=== PATIENT | female | born 1995 | race Caucasian/White ===

== ENCOUNTER 2018-12-13 16:33 | Emergency (ER) | payer SELFPAY ==
[~2018-12-13] VITALS: Ht 165.1 cm; Wt 83.9 kg
--- NOTE | 2018-12-13 17:04 | ED Abdominal Pain ---
General Chief Complaint: Abdominal/GI Problems Stated Complaint: ABD PAIN, LOW BACK PAIN, DIZZY, NAUSEA History of Present Illness Date Seen by Provider: Dec 13, 2018 Time Seen by Provider: 16:48 This is a 23-year-old female who complains of mid suprapubic pain constant all day today, but intermittent over the last several weeks. It is nonradiating. It is mild to moderate in severity. It is not worse with walking, slightly better with Tylenol. She has had increased frequency of urination but no hematuria or dysuria. Denies vaginal bleeding or discharge. Last menstrual period was in October. Has mild constipation, no vomiting. Hx X 2. Allergies and Home Medications Allergies Coded Allergies: No Known Drug Allergies (Unverified , 12/13/18) Patient Home Medication List Home Medication List Reviewed: Yes Review of Systems Review of Systems Constitutional: no symptoms reported EENTM: No Symptoms Reported Respiratory: No Symptoms Reported Cardiovascular: No Symptoms Reported Gastrointestinal: See HPI Genitourinary: See HPI Musculoskeletal: no symptoms reported Skin: no symptoms reported Psychiatric/Neurological: No Symptoms Reported Endocrine: No Symptoms Reported Hematologic/Lymphatic: No Symptoms Reported Past Pvpcsce-Xjyldy-Iygwrw Hx Past Med/Social Hx: Reviewed Nursing Past Med/Soc Hx Patient Social History Recent Foreign Travel: No Contact w/Someone Who Travel: No Physical Exam Vital Signs Vital Signs - First Documented 12/13/18 16:43 Temp 98.1 Pulse 89 Resp 20 B/P (MAP) 130/83 (99) Pulse Ox 97 O2 Delivery Room Air Capillary Refill : Height/Weight/BMI Height: '" Weight: lbs. oz. kg; BMI Method: General Appearance: no apparent distress HEENT: normal ENT inspection Neck: supple Respiratory: lungs clear Cardiovascular: normal peripheral pulses, regular rate, rhythm Gastrointestinal: soft, other (mild mid suprapubic tenderness without rebound, rigidity, or guarding) Extremities: non-tender Back: no CVA tenderness Neurologic/Psychiatric: alert, normal mood/affect, oriented x 3; No abnormal gait Skin: warm/dry Progress/Results/Core Measures Results/Orders Lab Results Laboratory Tests Test 12/13/18 16:45 12/13/18 17:40 Range/Units Urine Color YELLOW Urine Clarity CLEAR Urine pH 6.0 5-9 Urine Specific [place] 1.025 H 1.016-1.022 Urine Protein NEGATIVE NEGATIVE Urine Glucose (UA) NEGATIVE NEGATIVE Urine Ketones NEGATIVE NEGATIVE Urine Nitrite POSITIVE H NEGATIVE Urine Bilirubin NEGATIVE NEGATIVE Urine Urobilinogen 0.2 NORMAL MG/DL Urine Leukocyte Esterase NEGATIVE NEGATIVE Urine RBC (Auto) 1+ H NEGATIVE Urine RBC 0-2 /HPF Urine WBC 0-2 /HPF Urine Squamous Epithelial Cells 0-2 /HPF Urine Crystals NONE /LPF Urine Bacteria FEW H /HPF Urine Casts NONE /LPF Urine Mucus MODERATE H /LPF Urine Culture Indicated YES Urine Test POSITIVE NEGATIVE Human Chorionic Gonadotropin, Quant 43 H <5 MIU/ML My Orders Orders - THALIA MEHTA DO Ua Culture If Indicated (12/13/18 16:57) Hcg,Qualitative Urine (12/13/18 16:57) Urine Culture (12/13/18 16:45) Hcg,Quantitative (12/13/18 17:18) Vital Signs/I&O 12/13/18 16:43 Temp 98.1 Pulse 89 Resp 20 B/P (MAP) 130/83 (99) Pulse Ox 97 O2 Delivery Room Air Progress Progress Note #1: Progress Note This is a 23-year-old female complaining of mid suprapubic pain, she has evidence of a UTI but also has a positive test. We are checking a quantitative hCG to assess whether ultrasound would be able to potentially identify an intrauterine if present. Patient is confident her blood type is A+, she also does not remember receiving rhogam in the past. We do not have formal ultrasound capability at this facility and if quantitative hCG is elevated above discriminatory zone I will recommend transfer for ultrasound to be performed tonight. Progress Note #2: Progress Note HCG below discriminatory zone. Recommend prompt follow-up with [facility]. Ectopic precautions were reviewed with patient. She feels comfortable going home. Departure Impression Primary Impression: Additional Impressions: Abdominal pain UTI (urinary tract infection) Disposition: 01 HOME, SELF-CARE Condition: Stable Departure-Patient Inst. Referrals: NO,LOCAL PHYSICIAN (PCP) Primary Care Physician OFE WATERS MD Patient Instructions: - The First Month Scripts Acetaminophen (Tylenol Extra Strength) 500 Mg Tablet 1000 MG PO QID PRN for pain for 30 Days, #30 TAB Prov: THALIA MEHTA DO 12/13/18 Cephalexin (Cephalexin) 500 Mg Tablet 500 MG PO BID for 5 Days, #10 TAB 0 Refills Prov: THALIA MEHTA DO 12/13/18 THALIA MEHTA DO Dec 13, 2018 17:04
[2018-12-13 17:12] LABS: CLARITY,URINE CLEAR; COLOR,URINE YELLOW; PROTEIN,URINE NEGATIVE (NEGATIVE)
[2018-12-13 17:13] LABS: BACTERIA,URINE FEW /HPF; BILIRUBIN,URINE NEGATIVE (NEGATIVE); GLUCOSE, URINE (UA) NEGATIVE (NEGATIVE); KETONES,URINE NEGATIVE (NEGATIVE); LEUKOCYTE ESTERASE ,URINE NEGATIVE (NEGATIVE); NITRITE,URINE POSITIVE (NEGATIVE); RBC,URINE 0-2 /HPF; UROBILINOGEN,URINE 0.2 MG/DL (NORMAL); WBC,URINE 0-2 /HPF
[2018-12-13 17:14] LABS: SQUAMOUS EPITHELIAL CELL,UR 0-2 /HPF
[2018-12-13] MEDS ORDERED: CEPH500T PO (18:30)
[2018-12-13] MEDS ORDERED: ACET-2267 PO (18:30)
[2018-12-13 18:42] VITALS: BP 130/83
== END 2018-12-13 18:42 | disposition home or self-care (01) ==
LOC: ER FS 16:35
DX: O23.40 Unspecified infection of urinary tract in pregnancy, unspecified trimester (principal); Z98.890 Other specified postprocedural states; Z3A.00 Weeks of gestation of pregnancy not specified
CPT/HCPCS: 36415; 81000; 84702; 84703; 87088

== ENCOUNTER 2019-02-24 06:01 | Emergency (ER) | payer MEDICAID, OTHER ==
[~2019-02-24] VITALS: Ht 152.4 cm; Wt 79.4 kg
[~2019-02-24 06:01] MED LIST: ACET-2267 PO; CEPH500T PO
--- OUTSIDE RECORDS SUMMARY | 2019-02-24 06:09 | XMS REPORT | Continuity of Care Document ---
Author Organization Unknown Address Unknown Allergies There is no data. Medications There is no data. Problems There is no data. Procedures There is no data. Results Test Result Range HEP B SURFACE ANTIGEN - 12/17/18 10:36 HEPATITIS B SURFACE ANTIGEN NON-REACTIVE NON-REACTIVE GC/CHLAMYDIA (SWAB OR URINE)-RAPID - 12/17/18 16:42 CHLAMYDIA TRACHOMATIS RNA, TMA DETECTED NOT DETECTED NEISSERIA GONORRHOEAE RNA, TMA NOT DETECTED NOT DETECTED COMMENT NRG GC/CHLAMYDIA (SWAB OR URINE)-RAPID - 02/04/19 13:49 CHLAMYDIA TRACHOMATIS RNA, TMA NOT DETECTED NOT DETECTED NEISSERIA GONORRHOEAE RNA, TMA NOT DETECTED NOT DETECTED COMMENT NRG Encounters ACCT No. Visit Date/Time Discharge Status Pt. Type Provider Facility Loc./Unit Complaint [id number] 02/18/2019 15:15:00 02/18/2019 23:59:59 [facility] Outpatient [facility]ANNA[facility] [id number] 02/04/2019 13:30:00 Document Registration [id number] 12/17/2018 09:15:00 Document Registration
[2019-02-24] MEDS ORDERED: ACETAMINOPHEN 325 MG TABLET PO STA (06:29)
--- NOTE | 2019-02-24 06:36 | ED Abdominal Pain ---
General Stated Complaint: ABDOMINAL PAIN/15 WEEKS Source of Information: Patient Exam Limitations: No Limitations History of Present Illness Date Seen by Provider: Feb 24, 2019 Time Seen by Provider: 06:13 Initial Comments Here with report of right lower quadrant abdominal pain that started after she was lifting at work. 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 She felt a tearing sensation on the right side and thinks that she may have ripped old C- section scar. She is currently approximately 15 weeks . She did note some vaginal bleeding 1 but that has stopped. It was on the toilet paper when she wiped. Denies nausea or vomiting. States pain is worse when she is walking about and better when she is resting with maximal pain 8 out of 10 and decreases to 5 out of 10. She does not appear to be in any distress. She is walking without difficulty. She is a patient of Dr. Macias. Timing/Duration: 1-3 Hours Severity/Quality: Moderate, Aching Location: RLQ Radiation: No Radiation Activities at Onset: Activity Modifying Factors: Improves With Resting Associated Symptoms: No Back Pain, No Chest Pain, No Fever/Chills, No Nausea/V omiting, No Swelling/Mass in Abdomen, No Weakness Allergies and Home Medications Allergies Coded Allergies: No Known Drug Allergies (Unverified , 12/13/18) Home Medications Acetaminophen 500 Mg Tablet, 1,000 MG PO QID PRN for pain Prescribed by: THALIA MEHTA on 12/13/18 183 Cephalexin 500 Mg Tablet, 500 MG PO BID Prescribed by: THALIA MEHTA on 12/13/18 1830 Patient Home Medication List Home Medication List Reviewed: Yes Review of Systems Review of Systems Constitutional: see HPI; No chills, No fever Respiratory: No Symptoms Reported Cardiovascular: No Symptoms Reported Gastrointestinal: See HPI, Abdominal Pain, Constipated; Denies Diarrhea Genitourinary: See HPI, Discharge (whitish) Musculoskeletal: see HPI; No back pain; muscle pain Skin: no symptoms reported Psychiatric/Neurological: No Symptoms Reported Past Qyqoert-Rjmcph-Zwaybw Hx Past Med/Social Hx: Reviewed Nursing Past Med/Soc Hx Patient Social History Alcohol Use: Denies Use Recreational Drug Use: No Smoking Status: Current Everyday Smoker Type Used: Cigarettes Recent Foreign Travel: No Contact w/Someone Who Travel: No Recent Hopitalizations: No Seasonal Allergies Seasonal Allergies: No Past Medical History Surgeries: Yes Section Respiratory: No Cardiac: No Neurological: No Genitourinary: No Gastrointestinal: No Musculoskeletal: No Endocrine: No HEENT: No Cancer: No Psychosocial: No Integumentary: No Blood Disorders: No Family Medical History Reviewed Nursing Family Hx Physical Exam Vital Signs Vital Signs - First Documented 02/24/19 06:08 Temp 97.8 Pulse 92 Resp 20 B/P (MAP) 126/74 (91) Pulse Ox 99 O2 Delivery Room Air Capillary Refill : Height/Weight/BMI Height: 5'5.00" Weight: 185lbs. oz. 83.359795yi; BMI Method:Stated General Appearance: WD/WN, no apparent distress Neck: full range of motion, supple Respiratory: lungs clear, normal breath sounds Cardiovascular: regular rate, rhythm, no murmur Peripheral Pulses: 2+ Dorsalis Pedis (R), 2+ Left Dors-Pedis (L), 2+ Radial Pulses (R), 2+ Radial Pulses (L) Gastrointestinal: soft; No guarding, No rebound; tenderness (mild on deep palpation to the suprapubic area.) Extremities: non-tender, normal inspection Back: normal inspection, no CVA tenderness, no vertebral tenderness Neurologic/Psychiatric: alert, oriented x 3 Skin: normal color, warm/dry Progress/Results/Core Measures Results/Orders Lab Results Laboratory Tests Test 02/24/19 06:08 Range/Units Urine Color YELLOW Urine Clarity CLEAR Urine pH 6.5 5-9 Urine Specific [place] 1.020 1.016-1.022 Urine Protein NEGATIVE NEGATIVE Urine Glucose (UA) NEGATIVE NEGATIVE Urine Ketones 2+ H NEGATIVE Urine Nitrite NEGATIVE NEGATIVE Urine Bilirubin NEGATIVE NEGATIVE Urine Urobilinogen 1.0 NORMAL MG/DL Urine Leukocyte Esterase NEGATIVE NEGATIVE Urine RBC (Auto) TRACE H NEGATIVE Urine RBC 0-2 /HPF Urine WBC 0-2 /HPF Urine Squamous Epithelial Cells 2-5 /HPF Urine Crystals NONE /LPF Urine Bacteria NEGATIVE /HPF Urine Casts NONE /LPF Urine Mucus NONE /LPF Urine Culture Indicated NO My Orders Orders - OJSE WHITFIELD MD Ua Culture If Indicated (02/24/19 06:19) Abo Rh Type (02/24/19 06:19) Acetaminophen Tablet/Caplet (Tylenol T (02/24/19 06:29) Vital Signs/I&O 02/24/19 06:08 Temp 97.8 Pulse 92 Resp 20 B/P (MAP) 126/74 (91) Pulse Ox 99 O2 Delivery Room Air Progress Progress Note : Progress Note Seen and evaluated. UA ordered. ABO Rh ordered. Limited bedside ultrasound done and does show positive movement. Tylenol 650 mg by mouth ordered. Monitor patient. 0723: heart tones by Doppler per nursing were 135. No persistent vaginal bleeding and overall feels better now. I did discuss the case with Dr. Macias, and he would like to see her in follow-up tomorrow. No other recommendations at this time. Patient reports that she is historically a positive. We are pending the ABO Rh determination. She has not had program on previous pregnancies. Discharged home with return precautions. Patient verbalize understanding instructions and agreement with plan. Departure Impression Primary Impression: Abdominal pain during in second trimester Disposition: HOME, SELF-CARE Condition: Improved Departure-Patient Inst. Decision time for Depature: 07:25 Referrals: NO,LOCAL PHYSICIAN (PCP/Family) Primary Care Physician Patient Instructions: Acute Abdomen (Belly Pain), Adult (DC), Threatened Misca rriage (DC) Add. Discharge Instructions: Call Dr. Macias' office today for appointment tomorrow. You may take your prescribed Tylenol with Codeine as prescribed. If you're not taking that, you may take 2 extra strength Tylenol/acetaminophen every 6 hours but do not take both together as they both have Tylenol/acetaminophen in them. Return for worse pain, vaginal bleeding, weakness, breathing problems, difficulty with urination or or going to the bathroom or other concerns as needed. You should initiate pelvic rest until cleared by Dr. Macias. You should avoid heavy lifting as this will likely aggravate the problem as well (nothing over 10 pounds). Copy Copies To 1: SANDRA MACIAS TIMOTHY D MD Feb 24, 2019 06:35
[2019-02-24 06:55] LABS: BACTERIA,URINE NEGATIVE /HPF; BILIRUBIN,URINE NEGATIVE (NEGATIVE); CLARITY,URINE CLEAR; COLOR,URINE YELLOW; GLUCOSE, URINE (UA) NEGATIVE (NEGATIVE); KETONES,URINE 2+ (NEGATIVE); LEUKOCYTE ESTERASE ,URINE NEGATIVE (NEGATIVE); NITRITE,URINE NEGATIVE (NEGATIVE); PH,URINE 6.5 (5-9); PROTEIN,URINE NEGATIVE (NEGATIVE); RBC,URINE 0-2 /HPF; WBC,URINE 0-2 /HPF
--- NOTE | 2019-02-24 07:07 | NUR ---
Report was given to COLTON Gary at this time.
[2019-02-24 07:38] VITALS: BP 126/74
== END 2019-02-24 07:37 | disposition home or self-care (01) ==
LOC: EDUNIT# 06:01 → ER FS 06:06
DX: O26.892 Other specified pregnancy related conditions, second trimester (principal); R10.31 Right lower quadrant pain; O99.332 Smoking (tobacco) complicating pregnancy, second trimester; F17.210 Nicotine dependence, cigarettes, uncomplicated; Z3A.15 15 weeks gestation of pregnancy; Z98.890 Other specified postprocedural states
CPT/HCPCS: 81000; 86900; 86901

== ENCOUNTER 2019-05-16 01:56 | Emergency (ER) | payer MEDICAID ==
[~2019-05-16] VITALS: Ht 152.4 cm; Wt 77.6 kg
--- NOTE | 2019-05-16 02:19 | ED Abdominal Pain ---
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 Patient states that she has had contractions for the last 2 hours. They are 7 minutes apart and last 5 minutes. Patient states that she had placenta previa at the beginning of her but it has resolved. Sepsis Screen: No Definite Risk History of Present Illness Date Seen by Provider: May 16, 2019 Time Seen by Provider: 02:05 Initial Comments The pt is a 23 y/o who presents for evaluation of possible contractions. She sits at 2300 tonight she felt like her abdomen and back firmed up and contracted and she felt some pain. She says Dr. Vail is her ISSUING OPERATOR. She denies any vaginal bleeding, nausea or vomiting, urinary symptoms, pelvic pain, vaginal discharge, fevers or chills. FHT's are 157. She reports she was told earliness that she had placenta previa but that later the placenta repositioned. Timing/Duration: 1-3 Hours Severity/Quality: Moderate Location: Generalized Abdomen Radiation: No Radiation Modifying Factors: Improves With Resting (makes it better) Allergies and Home Medications Allergies Coded Allergies: No Known Drug Allergies (Unverified , 12/13/18) Home Medications Acetaminophen 500 Mg Tablet, 1,000 MG PO QID PRN for pain Prescribed by: THALIA MEHTA on 12/13/181829 Cephalexin 500 Mg Tablet, 500 MG PO BID Prescribed by: THALIA MEHTA on 12/13/181829 Patient Home Medication List Home Medication List Reviewed: Yes Review of Systems Review of Systems Constitutional: no symptoms reported EENTM: No Symptoms Reported Respiratory: No Symptoms Reported Cardiovascular: No Symptoms Reported Gastrointestinal: Abdominal Pain Genitourinary: No Symptoms Reported Musculoskeletal: no symptoms reported Skin: no symptoms reported Psychiatric/Neurological: No Symptoms Reported Endocrine: No Symptoms Reported Hematologic/Lymphatic: No Symptoms Reported All Other Systems Reviewed Negative Unless Noted: Yes Past Nbbwrjz-Ufnnnz-Lybmqy Hx Past Med/Social Hx: Reviewed Nursing Past Med/Soc Hx Patient Social History Alcohol Use: Denies Use Recreational Drug Use: No Smoking Status: Current Everyday Smoker Type Used: Cigarettes Recent Foreign Travel: No Contact w/Someone Who Travel: No Recent Infectious Disease Expo: No Recent Hopitalizations: No Physical Abuse: No Sexual Abuse: No Mistreated: No Fear: No Seasonal Allergies Seasonal Allergies: No Past Medical History Surgeries: Yes Section Respiratory: No Cardiac: No Neurological: No Genitourinary: No Gastrointestinal: No Musculoskeletal: No Endocrine: No HEENT: No Cancer: No Psychosocial: No Integumentary: No Blood Disorders: No Physical Exam Vital Signs Vital Signs - First Documented 05/16/19 02:05 Temp 97.5 Pulse 109 Resp 20 B/P (MAP) 124/86 (99) Pulse Ox 95 O2 Delivery Room Air Capillary Refill : Less Than 3 Seconds Height/Weight/BMI Height: 5'0" Weight: 171lbs. 0oz. 77.257587ar; BMI Method:Stated General Appearance: WD/WN, no apparent distress HEENT: PERRL/EOMI, normal ENT inspection, TMs normal Respiratory: chest non-tender, normal breath sounds, no respiratory distress Cardiovascular: regular rate, rhythm, no edema, no JVD Gastrointestinal: normal bowel sounds, non tender, soft, no pulsatile mass, other (gravid abdomen consistent with dates, no focal tenderness) Extremities: normal range of motion, non-tender, normal capillary refill Back: normal inspection, no CVA tenderness, no vertebral tenderness Pelvic: normal external exam, normal adnexa, no cerv. 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 Vail [facility] I give the patient option of ambulance transport but she states she is comfortable driving herself and that she is feeling much better. She will still need to be monitored. Bedside pelvic exam (web design instructor COLTON Burns) shows the patient is not in active labor. Departure Impression Primary Impression: Abdominal pain during Additional Impression: contractions Disposition: 01 HOME, SELF-CARE Condition: Stable Departure-Patient Inst. Decision time for Depature: 02:39 Referrals: NO,LOCAL PHYSICIAN (PCP) Primary Care Physician SANDRA BACK DO Patient Instructions: Stomach Pain in Early Add. Discharge Instructions: Go directly to labor and delivery at [facility]. Return to the ER immediately for new or worsening symptoms. Follow up with Dr. Vail next 1-2 days. DONALD CALDWELL DO May 16, 2019 02:19
[2019-05-16 02:40] VITALS: BP 124/86
[2019-05-16] MEDS ORDERED: PREN-142 PO (04:52)
== END 2019-05-16 02:40 | disposition home or self-care (01) ==
LOC: EDUNIT# 01:56 → ER FS 01:57
DX: O60.02 Preterm labor without delivery, second trimester (principal); O99.332 Smoking (tobacco) complicating pregnancy, second trimester; F17.210 Nicotine dependence, cigarettes, uncomplicated; Z3A.26 26 weeks gestation of pregnancy
CPT/HCPCS: 99281

== ENCOUNTER 2019-05-16 03:47 | Outpatient (CLI) | payer MEDICAID ==
--- NOTE | 2019-05-16 03:53 | NUR ---
MARGARITO TELLEZ presented to unit via wheelchair from ED, accompanied by ED staff member, with c/o STOMACH & BACK PAIN,PRESSURE,CLEAR DISCHARGE. MARGARITO TELLEZ weighed, gowned, voided, and to bed. EFHM and TOCO applied, VS taken. MARGARITO TELLEZ oriented to bed controls, call light, TV, heat, and A/C controls.
[2019-05-16 04:09] VITALS: BP 112/70
[2019-05-16 04:15] LABS: BILIRUBIN,URINE NEGATIVE (NEGATIVE); CLARITY,URINE CLEAR; COLOR,URINE YELLOW; GLUCOSE, URINE (UA) NEGATIVE (NEGATIVE); KETONES,URINE NEGATIVE (NEGATIVE); LEUKOCYTE ESTERASE ,URINE 1+ (NEGATIVE); NITRITE,URINE NEGATIVE (NEGATIVE); PH,URINE 6 (5-9); PROTEIN,URINE 1+ (NEGATIVE); UROBILINOGEN,URINE 1 MG/DL (NORMAL)
[2019-05-16 04:33] LABS: BACTERIA,URINE MODERATE /HPF; GRANULAR CASTS,URINE 0-2 /LPF; HYALINE CASTS, URINE 0-2 /LPF; WBC,URINE 0-2 /HPF
[2019-05-16] MEDS ORDERED: ACETAMINOPHEN 500 MG TAB (TYLENOL) ONE (04:38)
--- NOTE | 2019-05-16 04:44 | NUR ---
ht wt unobtained as pt reports leaking, pt straight to bed for imminent assessment regarding poss rom.
[2019-05-16] MEDS ORDERED: PREN-142 PO (04:52)
[2019-05-16] MEDS ORDERED: ACETAMINOPHEN 500 MG TAB (TYLENOL) PO ONE (05:00)
--- NOTE | 2019-05-16 05:00 | NUR ---
Discharge instructions reviewed with pt per Jesus Figueroa RN. Signature sheet signed, placed on chart. Pt ambulating to private vehicle at time. No signs of distress noted.
[2019-05-18] MEDS ORDERED: metroNIDAZOLE 500MG/100ML IVPB 100 ML ONE (01:50)
[2019-05-18] MEDS ORDERED: ceFAZolin 2 GM/50 ML NS 50 ML ONE (01:50)
--- NOTE | 2019-05-23 00:33 | Physician Query-Final Dx ---
FARHEEN CARLTON 05/23/19 0033: Final Diagnosis Give Final Diagnosis Please give Final Diagnosis Please give Final Diagnosis and add weeks of gestation SANDRA BACK DO 05/23/19 0803: Final Diagnosis Give Final Diagnosis Intrauterine at 26 5/7 weeks 2. Back Pain 3. Abdominal Pain 4. Vaginal Discharge FARHEEN CARLTON May 23, 2019 00:33 SANDRA BACK DO May 23, 2019 08:03
== END 2019-05-16 05:00 | disposition home or self-care (01) ==
LOC: WSo 03:47 → LDRP 03:48 → WSo 05:00
PROVIDERS: ATTEND Obstetrics & Gynecology
DX: O26.892 Other specified pregnancy related conditions, second trimester (principal); N89.8 Other specified noninflammatory disorders of vagina; M54.9 Dorsalgia, unspecified; R10.9 Unspecified abdominal pain; Z3A.26 26 weeks gestation of pregnancy
CPT/HCPCS: 81000; 99213

== ENCOUNTER 2019-07-13 08:07 | Emergency (ER) | payer MEDICAID ==
[~2019-07-13] VITALS: Ht 152.4 cm; Wt 79.1 kg
[~2019-07-13 08:07] MED LIST changes: +PREN-142 PO
--- NOTE | 2019-07-13 08:25 | NUR ---
Dr. Luis Enrique Macias called at this time and informed that patient presented to ER at 35 weeks gestation with c/o fluid leaking. This RN informed Dr. Macias that patient stated that she felt a gush of fluid around 7am this morning and thinks that her water broke. She also c/o intermittent cramping that occurs every 8 to 10 minutes and then subsides and might not occur again for several hours. AmnioTest swab was negative for amniotic fluid. Dr. Macias states that we can discharge patient and send her by private vehical to [facility] for further monitoring.
--- NOTE | 2019-07-13 08:35 | ED GU-Female ---
General Stated Complaint: PT THINKS HER WATER BROKE - 35 WKS Source: patient Exam Limitations: no limitations History of Present Illness Date Seen by Provider: Jul 13, 2019 Time Seen by Provider: 08:20 Initial Comments The patient is a 23-year-old female who believes that her water broke while in bed this morning. She states that she is 35 weeks and wants to be a repeat in July at [facility] Timing/Duration: just prior to arrival Severity/Quality: moderate Allergies and Home Medications Allergies Coded Allergies: No Known Drug Allergies (Unverified , 12/13/18) Home Medications Acetaminophen 500 Mg Tablet, 1,000 MG PO QID PRN for pain Prescribed by: THALAI MEHTA on 12/13/18 4250 Patient Home Medication List Home Medication List Reviewed: Yes Review of Systems Review of Systems Constitutional: see HPI Respiratory: no symptoms reported Cardiovascular: no symptoms reported Gastrointestinal: no symptoms reported, other Past Tspybkw-Mnqmny-Tsqohn Hx Patient Social History Type Used: Cigarettes Recent Hopitalizations: No Seasonal Allergies Seasonal Allergies: No Past Medical History Surgeries: Yes Section Respiratory: No Cardiac: No Neurological: No Genitourinary: No Gastrointestinal: No Musculoskeletal: No Endocrine: No HEENT: No Cancer: No Psychosocial: No Integumentary: No Blood Disorders: No Physical Exam Vital Signs Capillary Refill : Height, Weight, BMI Height: 5'0" Weight: 171lbs. 0oz. 77.175336vd; BMI Method:Stated General Appearance: WD/WN, no apparent distress Neck: full range of motion Cardiovascular: normal peripheral pulses Respiratory: chest non-tender, lungs clear, normal breath sounds, no respiratory distress, no accessory muscle use, respiratory distress Vaginal swab was tested for amniotic fluid and was negative. Manual exam showed the cervix to be high anterior and tight. Progress/Results/Core Measures Suspected Sepsis SIRS Temperature: Pulse: Respiratory Rate: Blood Pressure / Mean: Results/Orders Vital Signs/I&O Capillary Refill : Departure Communication (Admissions) 7738: Discussed the findings with Dr. Macias her OB provider. Given the findings he okays her to transfer immediately by private vehicle to [place] her planned delivery site. Impression Primary Impression: possible early labor Disposition: XFER SHT-TRM HOSP Condition: Stable/Unchanged Transfer Transfer Reason: Exceeds level of care Time Spoke to Accepting Phy: 08:42 Transfer Progress Notes See progress note above. The patient has been cleared by Dr. Macias to go by private vehicle to [place] her planned site of Departure-Patient Inst. Referrals: SANDRA MACIAS DO (PCP/Family) Primary Care Physician KAREN MEANS MD Jul 13, 2019 08:35
[2019-07-13 08:49] VITALS: BP 134/85
--- NOTE | 2019-07-13 08:59 | NUR ---
This RN contacted COLTON Soto at [facility] and informed her that the patient was instructed to come there per Dr. Macias for futher evaluation. Understanding was verbalized at this time.
--- NOTE | 2019-07-13 09:01 | NUR ---
Recieved a phone call from COLTON Vera in the OB department at [facility]. Report given at this time with understanding verbalized.
== END 2019-07-13 08:49 | disposition short-term general hospital (02) ==
LOC: EDUNIT# 08:07 → ER FS 08:08
DX: O42.913 Preterm premature rupture of membranes, unspecified as to length of time between rupture and onset of labor, third trimester (principal); Z3A.35 35 weeks gestation of pregnancy

== ENCOUNTER 2019-10-21 00:07 | Emergency (ER) | payer SELFPAY ==
[~2019-10-21] VITALS: Ht 152 cm; Wt 70.0 kg
[2019-10-21] MEDS ORDERED: ONDANSETRON 4 MG (ZOFRAN) ORAL DISSOLVE TAB PO STA (00:22)
[2019-10-21] MEDS ORDERED: LIDOCAINE/ANTACID/DIPHENHYDRAMINE 1:1:1 PO STA (00:22)
[2019-10-21] MEDS ORDERED: LIDOCAINE 2% VISCOUS 15 ML UDC ONE (00:25)
[2019-10-21] MEDS ORDERED: ANTACID SUSP 30 ML UDC (MYLANTA) ONE (00:25)
[2019-10-21] MEDS ORDERED: ANTACID SUSP 30 ML UDC (MYLANTA) PO ONE (00:30)
[2019-10-21] MEDS ORDERED: LIDOCAINE 2% VISCOUS 15 ML UDC PO ONE (00:30)
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
[2019-10-21] MEDS ORDERED: FAMO-119 PO (00:33)
[2019-10-21] MEDS ORDERED: ONDA4TAB11 PO (00:33)
[2019-10-21 00:40] VITALS: BP 115/62
== END 2019-10-21 00:42 | disposition home or self-care (01) ==
LOC: EDUNIT# 00:07 → ER FS 00:09
DX: K30 Functional dyspepsia (principal); R10.816 Epigastric abdominal tenderness

== ENCOUNTER → 2020-06-14 | Outpatient (CLI) | payer SELFPAY ==
[~2020-06-14] MED LIST changes: +FAMO-119 PO; +ONDA4TAB11 PO
--- NOTE | 2020-06-14 09:36 | Diagnostic Imaging Report ---
EXAMINATION: Abdomen flat and erect at 9:10 AM. INDICATION: Abdominal pain. COMPARISON: There are no prior studies available for comparison. TECHNIQUE: Supine and erect views of the abdomen were obtained. FINDINGS: There is a 1.7 cm calcification overlying the right upper quadrant. This could be related to a gallstone. I would recommend that ultrasound be performed for further study. There are no other pathological calcifications noted. There is gas in both the large and small bowel in a nonspecific fashion. There is no sign of a bowel obstruction. There is no evidence for a pneumoperitoneum either. There does appear to be at least a moderate amount of fecal material in the ascending and transverse colon. There is no mass or organomegaly appreciated. The osseous structures are intact. IMPRESSION: 1. The calcific density overlying the right upper quadrant is questionable for cholelithiasis. Ultrasound would be recommended for further study. 2. The bowel gas pattern is nonspecific. There is no acute abnormality noted otherwise. Dictated by: Dictated on workstation # [id number]
== END ==
LOC: RAD FS 08:54
PROVIDERS: ATTEND Nurse Practitioner Family
DX: R10.11 Right upper quadrant pain (principal); R93.5 Abnormal findings on diagnostic imaging of other abdominal regions, including retroperitoneum
CPT/HCPCS: 74019

== ENCOUNTER 2020-07-28 07:30 | Emergency (ER) | payer OTHER ==
[~2020-07-28] VITALS: Ht 152 cm; Wt 85.0 kg
[2020-07-28 07:39] VITALS: BP 122/88
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
== END 2020-07-28 08:07 | disposition home or self-care (01) ==
LOC: EDUNIT# 07:36 → ER FS 07:37
DX: S63.601A Unspecified sprain of right thumb, initial encounter (principal); F17.210 Nicotine dependence, cigarettes, uncomplicated; V40.5XXA Car driver injured in collision with pedestrian or animal in traffic accident, initial encounter; Y92.410 Unspecified street and highway as the place of occurrence of the external cause
CPT/HCPCS: 73120

== ENCOUNTER 2020-12-28 11:39 | Emergency (ER) | payer SELFPAY ==
[~2020-12-28] VITALS: Ht 152.4 cm; Wt 83.1 kg
--- NOTE | 2020-12-28 11:57 | ED Abdominal Pain ---
General Stated Complaint: N/V, ABD PAIN,CONSTIPATION Source of Information: Patient Exam Limitations: No Limitations History of Present Illness Date Seen by Provider: Dec 28, 2020 Time Seen by Provider: 11:45 Initial Comments ER with right upper quadrant/epigastric abdominal pain for the past few days as well as nausea and vomiting and inability to tolerate any oral intake because of pain and vomiting. She is not had a bowel movement in 3 days and believes herself to be constipated. She states that she has gallstones. Was seen at [facility] and referred here. Timing/Duration: 1-2 Days Severity/Quality: Moderate Radiation: No Radiation Activities at Onset: None Associated Symptoms: Nausea/Vomiting Allergies and Home Medications Allergies Coded Allergies: No Known Drug Allergies (Unverified , 12/13/18) Home Medications Acetaminophen 500 Mg Tablet, 1,000 MG PO QID PRN for pain Prescribed by: THALIA MEHTA on 12/13/18 183 Famotidine 20 Mg Tablet, 20 MG PO BID Prescribed by: CHRISTINA YODER on 10/21/19 003 Ondansetron 4 Mg Tab.rapdis, 4 MG PO Q6H Prescribed by: CHRISTINA YODER on 10/21/1932 Patient Home Medication List Home Medication List Reviewed: Yes Review of Systems Review of Systems Constitutional: see HPI EENTM: No Symptoms Reported Respiratory: No Symptoms Reported Cardiovascular: No Symptoms Reported Gastrointestinal: See HPI, Abdominal Pain Musculoskeletal: no symptoms reported Skin: no symptoms reported Psychiatric/Neurological: See HPI Endocrine: No Symptoms Reported Hematologic/Lymphatic: No Symptoms Reported Past Rbxvbuo-Hrtcwk-Jaiccw Hx Patient Social History Type Used: Cigarettes 2nd Hand Smoke Exposure: No Recent Hopitalizations: No Seasonal Allergies Seasonal Allergies: No Past Medical History Surgeries: Yes ( X 3) Section Respiratory: No Cardiac: No Neurological: No Genitourinary: No Gastrointestinal: No Musculoskeletal: No Endocrine: No HEENT: No Cancer: No Psychosocial: No Integumentary: No Blood Disorders: No Physical Exam Vital Signs Vital Signs - First Documented 12/28/20 11:45 Temp 36.2 Pulse 88 Resp 18 B/P (MAP) 162/107 (125) Pulse Ox 96 O2 Delivery Room Air Capillary Refill : Height/Weight/BMI Height: 5'0" Weight: 171lbs. 0oz. 77.259853pm; 36.00 BMI Method:Stated General Appearance: WD/WN, no apparent distress Neck: non-tender, full range of motion Respiratory: no respiratory distress, no accessory muscle use Cardiovascular: regular rate, rhythm, no murmur Gastrointestinal: normal bowel sounds, soft, tenderness Neurologic/Psychiatric: alert, normal mood/affect, oriented x 3 Skin: normal color (Very good outstanding crowd), warm/dry Progress/Results/Core Measures Results/Orders Lab Results Laboratory Tests Test 12/28/20 11:53 Range/Units White Blood Count 6.9 4.3-11.0 10^3/uL Red Blood Count 6.05 H 3.80-5.11 10^6/uL Hemoglobin 17.2 H 11.5-16.0 g/dL Hematocrit 51 35-52 % Mean Corpuscular Volume 85 80-99 fL Mean Corpuscular Hemoglobin 28 25-34 pg Mean Corpuscular Hemoglobin Concent 34 32-36 g/dL Red Cell Distribution Width 12.7 10.0-14.5 % Platelet Count 282 130-400 10^3/uL Mean Platelet Volume 11.6 9.0-12.2 fL Immature Granulocyte % (Auto) 0 % Neutrophils (%) (Auto) 65 42-75 % Lymphocytes (%) (Auto) 26 12-44 % Monocytes (%) (Auto) 6 0-12 % Eosinophils (%) (Auto) 2 0-10 % Basophils (%) (Auto) 1 0-10 % Neutrophils # (Auto) 4.5 1.8-7.8 10^3/uL Lymphocytes # (Auto) 1.8 1.0-4.0 10^3/uL Monocytes # (Auto) 0.4 0.0-1.0 10^3/uL Eosinophils # (Auto) 0.1 0.0-0.3 10^3/uL Basophils # (Auto) 0.1 0.0-0.1 10^3/uL Immature Granulocyte # (Auto) 0.0 0.0-0.1 10^3/uL Sodium Level 139 135-145 MMOL/L Potassium Level 4.5 3.6-5.0 MMOL/L Chloride Level 102 98-107 MMOL/L Carbon Dioxide Level 22 21-32 MMOL/L Anion Gap 15 H 5-14 MMOL/L Blood Urea Nitrogen 10 7-18 MG/DL Creatinine 0.67 0.60-1.30 MG/DL Estimat Glomerular Filtration Rate > 60 BUN/Creatinine Ratio 15 Glucose Level 91 70-105 MG/DL Calcium Level 9.7 8.5-10.1 MG/DL Corrected Calcium 9.3 8.5-10.1 MG/DL Total Bilirubin 2.8 H 0.1-1.0 MG/DL Aspartate Amino Transf (AST/SGOT) 321 H 5-34 U/L Alanine Aminotransferase (ALT/SGPT) 431 H 0-55 U/L Alkaline Phosphatase 271 H 40-136 U/L Total Protein 8.2 6.4-8.2 GM/DL Albumin 4.5 3.2-4.5 GM/DL Lipase 1827 H 8-78 U/L Serum Test, Qualitative NEGATIVE NEGATIVE My Orders Orders - PATRICA ARMENDARIZ APRN Cbc With Automated Diff (12/28/20 11:51) Comprehensive Metabolic Panel (12/28/20 11:51) Lipase (12/28/20 11:51) Ua Culture If Indicated (12/28/20 11:51) Hcg,Qualitative Serum (12/28/20 11:51) Ed Iv/Invasive Line Start (12/28/20 11:51) Us Gallbladder [id number] (12/28/20 11:51) Acute Abd Series (12/28/20 11:51) Ns Iv 1000 Ml (Sodium Chloride 0.9%) (12/28/20 12:00) Ondansetron Injection (Zofran Injectio (12/28/20 12:00) Fentanyl Inj (Sublimaze Injection) (12/28/20 12:00) Ketorolac Injection (Toradol Injection) (12/28/20 12:00) Medications Given in ED Current Medications Medications Dose Ordered Sig/Romana Route Start Time Stop Time Status Last Admin Dose Admin Fentanyl Citrate 50 mcg ONCE ONCE IVP 12/28/20 12:00 12/28/20 12:01 DC 12/28/20 12:04 50 MCG Ketorolac Tromethamine 15 mg ONCE ONCE IVP 12/28/20 12:00 12/28/20 12:01 DC 12/28/20 12:02 15 MG Ondansetron HCl 8 mg ONCE ONCE IVP 12/28/20 12:00 12/28/20 12:01 DC 12/28/20 12:01 8 MG Vital Signs/I&O 12/28/20 11:45 Temp 36.2 Pulse 88 Resp 18 B/P (MAP) 162/107 (125) Pulse Ox 96 O2 Delivery Room Air Diagnostic Imaging Diagonstic Imaging: Ultrasound Comments NAME: MARGARITO TELLEZ [facility] REC#: [id number] PT STATUS: REG ER : 1995 PHYSICIAN: PATRICA ARMENDARIZ APRN ADMIT DATE: 12/28/20/ER Draft Date of Exam:12/28/20 US GALLBLADDER [id number] EXAMINATION: US Abdomen limited. TECHNIQUE: Multiple real-time grayscale images were obtained over the right upper quadrant in various projections. HISTORY: Abdominal pain, nausea, vomiting. COMPARISON: None available. FINDINGS: Pancreas: The visualized portions of the pancreas are normal. Liver: The liver is normal in echogenicity and contour. No focal lesions are seen. The portal vein is patent with hepatopetal flow. Gallbladder and biliary tree: The gallbladder contains multiple stones without wall thickening, pericholecystic fluid, or sonographic Burroughs sign. There is no biliary ductal dilation. The common duct measures 0.6 cm. Right kidney: The right kidney is normal without hydronephrosis. Aorta and IVC: The visualized aorta and inferior vena cava are normal. Fluid: No ascites is seen. IMPRESSION: 1. Cholelithiasis without ultrasound findings of acute cholecystitis. 2. Otherwise unremarkable abdominal ultrasound. Dictated on workstation # [id number] Dict: 12/28/20 1303 Trans: 12/28/20 1306 [id number] Interpreted by: DONALD HOWE DO Electronically signed by: NAME: MARGARITO TELLEZ [facility] REC#: [id number] PT STATUS: REG ER : 1995 PHYSICIAN: PATRICA ARMENDARIZ APRN ADMIT DATE: 12/28/20/ER Draft Date of Exam:12/28/20 ACUTE ABD SERIES EXAMINATION: Abdominal series and chest radiograph HISTORY: constipation COMPARISON: Abdominal radiograph 06/14/2020 FINDINGS: Heart size and pulmonary vasculature are normal. The lungs are clear without consolidation, pleural effusion, or pneumothorax. The osseous structures are intact. There is moderate amount of gas and stool throughout the colon. Nonobstructive bowel gas pattern. No radiopaque foreign body. The osseous structures are intact. IMPRESSION: No acute abnormality in the chest or abdomen. Dictated on workstation # [id number] Dict: 12/28/20 1306 Trans: 12/28/20 1307 [id number] Interpreted by: DONALD HOWE DO Electronically signed by: Departure Communication (Admissions) 1311-I spoke with Dr. Miller from surgery he recommends transfer to facility with GI services for ERCP. 1332-I spoke with Dr. Frost from hospitalist services at [facility], accepts patient for transfer. Impression Primary Impression: Acute gallstone pancreatitis Disposition: 02 XFER SHT-TRM HOSP Condition: Stable Transfer Transfer Reason: Exceeds level of care Time Spoke to Accepting Phy: 13:11 Departure-Patient Inst. Referrals: [facility] (PCP) Primary Care Physician ZARINA CARMEN APRN (Family) Primary Care Physician PATRICA ARMENDARIZ APRN Dec 28, 2020 11:57
[2020-12-28] MEDS ORDERED: fentaNYL INJ 100 MCG/2 ML AMP IVP ONE ×2 (12:00→14:45)
[2020-12-28] MEDS ORDERED: ONDANSETRON 4 MG/2 ML (SDV) Z0FRAN IVP ONE (12:00)
[2020-12-28] MEDS ORDERED: KETOROLAC 30 MG/ML VIAL IVP ONE (12:00)
[2020-12-28] MEDS ORDERED: NS IV 1000 ML 1,000 ML IV SCH (12:00)
[2020-12-28 12:12] LABS: BASOPHILS # (AUTO) 0.1 10^3/uL (0.0-0.1); BASOPHILS % (AUTO) 1 % (0-10); EOSINOPHILS # (AUTO) 0.1 10^3/uL (0.0-0.3); EOSINOPHILS % (AUTO) 2 % (0-10); HEMATOCRIT 51 % (35-52); HEMOGLOBIN 17.2 g/dL (11.5-16.0); LYMPHOCYTES # (AUTO) 1.8 10^3/uL (1.0-4.0); LYMPHOCYTES % (AUTO) 26 % (12-44); MEAN CORPUSCULAR HEMOGLOBIN 28 pg (25-34); MEAN CORPUSCULAR HGB CONC 34 g/dL (32-36); MEAN CORPUSCULAR VOLUME 85 fL (80-99); MEAN PLATELET VOLUME 11.6 fL (9.0-12.2); MONOCYTES # (AUTO) 0.4 10^3/uL (0.0-1.0); MONOCYTES % (AUTO) 6 % (0-12); NEUTROPHILS # (AUTO) 4.5 10^3/uL (1.8-7.8); NEUTROPHILS % (AUTO) 65 % (42-75); PLATELET COUNT 282 10^3/uL (130-400); WHITE BLOOD COUNT 6.9 10^3/uL (4.3-11.0)
[2020-12-28 12:35] LABS: ALBUMIN 4.5 GM/DL (3.2-4.5); CHLORIDE 102 MMOL/L (98-107); POTASSIUM 4.5 MMOL/L (3.6-5.0); SODIUM 139 MMOL/L (135-145)
[2020-12-28 12:36] LABS: CALCIUM 9.7 MG/DL (8.5-10.1)
[2020-12-28 12:37] LABS: GLUCOSE 91 MG/DL (70-105)
[2020-12-28 12:38] LABS: TOTAL PROTEIN 8.2 GM/DL (6.4-8.2)
[2020-12-28 12:39] LABS: BILIRUBIN,TOTAL 2.8 MG/DL (0.1-1.0); CARBON DIOXIDE 22 MMOL/L (21-32)
[2020-12-28 12:41] LABS: ALKALINE PHOSPHATASE 271 U/L (40-136); CREATININE SERUM 0.67 MG/DL (0.60-1.30); GFR ESTIMATED > 60
[2020-12-28 12:42] LABS: BUN/CREATININE RATIO 15
[2020-12-28 12:44] LABS: ALANINE AMINOTRANSFERASE 431 U/L (0-55)
--- NOTE | 2020-12-28 13:07 | Diagnostic Imaging Report ---
EXAMINATION: US Abdomen limited. TECHNIQUE: Multiple real-time grayscale images were obtained over the right upper quadrant in various projections. HISTORY: Abdominal pain, nausea, vomiting. COMPARISON: None available. FINDINGS: Pancreas: The visualized portions of the pancreas are normal. Liver: The liver is normal in echogenicity and contour. No focal lesions are seen. The portal vein is patent with hepatopetal flow. Gallbladder and biliary tree: The gallbladder contains multiple stones without wall thickening, pericholecystic fluid, or sonographic Burroughs sign. There is no biliary ductal dilation. The common duct measures 0.6 cm. Right kidney: The right kidney is normal without hydronephrosis. Aorta and IVC: The visualized aorta and inferior vena cava are normal. Fluid: No ascites is seen. IMPRESSION: 1. Cholelithiasis without ultrasound findings of acute cholecystitis. 2. Otherwise unremarkable abdominal ultrasound. Dictated by: Dictated on workstation # [id number]
--- NOTE | 2020-12-28 13:08 | Diagnostic Imaging Report ---
EXAMINATION: Abdominal series and chest radiograph HISTORY: constipation COMPARISON: Abdominal radiograph 06/14/2020 FINDINGS: Heart size and pulmonary vasculature are normal. The lungs are clear without consolidation, pleural effusion, or pneumothorax. The osseous structures are intact. There is moderate amount of gas and stool throughout the colon. Nonobstructive bowel gas pattern. No radiopaque foreign body. The osseous structures are intact. IMPRESSION: No acute abnormality in the chest or abdomen. Dictated by: Dictated on workstation # [id number]
[2020-12-28 13:09] LABS: LIPASE 1827 U/L (8-78)
[2020-12-28 15:01] VITALS: BP 141/90
== END 2020-12-28 15:03 | disposition short-term general hospital (02) ==
LOC: EDUNIT# 11:39 → ER 11:42
DX: K85.10 Biliary acute pancreatitis without necrosis or infection (principal); Z32.02 Encounter for pregnancy test, result negative
CPT/HCPCS: 36415; 74022; 76705; 80053; 83690; 84703; 85025; 96361; 96374; 96375; 96376

== ENCOUNTER 2022-03-29 22:00 | Emergency (ER) | payer SELFPAY ==
[~2022-03-29] VITALS: Ht 152.4 cm; Wt 81.6 kg
[2022-03-29] MEDS ORDERED: KETOROLAC 30 MG/ML VIAL IVP STA (22:28)
[2022-03-29] MEDS ORDERED: NS IV 1000 ML 1,000 ML IV SCH (22:30)
[2022-03-29] MEDS ORDERED: ONDANSETRON 4 MG/2 ML (SDV) Z0FRAN IVP ONE (22:30)
[2022-03-29 22:31] LABS: BILIRUBIN,URINE NEGATIVE (NEGATIVE); CLARITY,URINE CLEAR; COLOR,URINE YELLOW; GLUCOSE, URINE (UA) NEGATIVE (NEGATIVE); KETONES,URINE TRACE (NEGATIVE); LEUKOCYTE ESTERASE ,URINE NEGATIVE (NEGATIVE); NITRITE,URINE NEGATIVE (NEGATIVE); PH,URINE 7.5 (5-9); PROTEIN,URINE 1+ (NEGATIVE)
--- NOTE | 2022-03-29 22:36 | ED Abdominal Pain ---
General Chief Complaint: Abdominal/GI Problems Stated Complaint: ABDOMINAL PAIN, NAUSEA, VOMITING History of Present Illness Date Seen by Provider: Mar 29, 2022 Time Seen by Provider: 22:18 Initial Comments 26-year-old female presents for lower abdominal and right flank pain that is been present since yesterday. She Ibuprofen at 0300 and Tylenol twice today, with no improvement in her symptoms. She has mild nausea and vomited once today, while driving to ED. She had a syncopal reaction after vomiting. She reports eating dinner tonight and drinking water today. She reports 3 C- sections and cholecystectomy. She had a kidney stone in her teenage years. She denies any other chronic or acute abdominal symptoms. Timing/Duration: 1-2 Days Severity/Quality: Moderate Location: Suprapubic Radiation: Flank (Right) Associated Symptoms: Back Pain; No Diaphoresis, No Fever/Chills, No Headache, N o Heartburn; Nausea/Vomiting; No Shortness of Air, No Swelling/Mass in Abdomen (BELL CHEN) Allergies and Home Medications Allergies Coded Allergies: No Known Drug Allergies (Unverified , 12/13/18) Patient Home Medication List Home Medication List Reviewed: Yes (BELL CHEN) Acetaminophen (Tylenol Extra Strength) 500 Mg Tablet, 1,000 MG PO QID PRN for pain Prescribed by: THALIA MEHTA on 12/13/181829 Famotidine (Pepcid) 20 Mg Tablet, 20 MG PO BID Prescribed by: CHRISTINA YODER on 10/21/19 0033 Nitrofurantoin Monohyd/M-Cryst (Macrobid 100 mg Capsule) 100 Mg Capsule, 1 TAB PO BID Prescribed by: BELL CHEN on 03/29/22 2310 Ondansetron (Ondansetron Odt) 4 Mg Tab.rapdis, 4 MG PO Q6H Prescribed by: CHRISTINA YODER on 10/21/19 003 Vit No.124/Iron/FA ( Vitamin Tablet) 1 Each Tablet, 1 EACH PO, (Reported) Entered as Reported by: VARSHA FLOWERS on 05/16/19 0452 Review of Systems Review of Systems Constitutional: see HPI, malaise EENTM: No Symptoms Reported, See HPI Respiratory: No Symptoms Reported, See HPI Cardiovascular: No Symptoms Reported, See HPI Gastrointestinal: See HPI, Abdominal Pain, Nausea, Vomiting Genitourinary: No Symptoms Reported, See HPI (BELL CHEN) All Other Systems Reviewed Negative Unless Noted: Yes (BELL CHEN) Past Lthqcpz-Guvtyk-Wjxydq Hx Patient Social History Tobacco Use?: Yes Tobacco type used: Cigarettes Substance use?: No Alcohol Use?: No Pt feels they are or have been: No (BELL CHEN) Seasonal Allergies Seasonal Allergies: No (BELL CHEN) Past Medical History Surgery/Hospitalization HX: C-SECT X3, GALLBLADDER, PANCREATITIS Surgeries: Yes ( X 3) Section Respiratory: No Cardiac: No Neurological: No Genitourinary: No Gastrointestinal: No Musculoskeletal: No Endocrine: No HEENT: No Cancer: No Psychosocial: No Integumentary: No Blood Disorders: No (BELL CHEN) Family Medical History Reviewed Nursing Family Hx (BELL CHEN) Physical Exam Vital Signs Vital Signs - First Documented 03/29/22 22:19 Temp 37.1 Pulse 118 Resp 18 B/P (MAP) 157/99 (118) Pulse Ox 97 O2 Delivery Room Air (GABRIELLA STRICKLAND MD) Vital Signs Capillary Refill : (BELL CHEN) Height/Weight/BMI Height: 5'0" Weight: 171lbs. 0oz. 77.066713pl; 35.00 BMI Method:Stated General Appearance: WD/WN, no apparent distress HEENT: PERRL/EOMI, normal ENT inspection, pharynx normal Neck: non-tender, full range of motion, supple, normal inspection Respiratory: chest non-tender, lungs clear, normal breath sounds Cardiovascular: normal peripheral pulses, regular rate, rhythm Gastrointestinal: normal bowel sounds, soft; No distended, No guarding, No rebound; tenderness (Suprapubic) Back: normal inspection, no vertebral tenderness, CVA tenderness (R); No CVA tenderness (L) Neurologic/Psychiatric: no motor/sensory deficits, alert, normal mood/affect, oriented x 3 (BELL CHEN) Progress/Results/Core Measures Results/Orders Lab Results Laboratory Tests Test 03/29/22 22:24 03/29/22 22:35 Range/Units Urine Color YELLOW Urine Clarity CLEAR Urine pH 7.5 5-9 Urine Specific [place] 1.020 1.016-1.022 Urine Protein 1+ H NEGATIVE Urine Glucose (UA) NEGATIVE NEGATIVE Urine Ketones TRACE H NEGATIVE Urine Nitrite NEGATIVE NEGATIVE Urine Bilirubin NEGATIVE NEGATIVE Urine Urobilinogen 4.0 < = 1.0 MG/DL Urine Leukocyte Esterase NEGATIVE NEGATIVE Urine RBC (Auto) 1+ H NEGATIVE Urine RBC 0-2 /HPF Urine WBC 2-5 /HPF Urine Squamous Epithelial Cells 2-5 /HPF Urine Renal Epithelial Cells NONE /HPF Urine Crystals NONE /LPF Urine Bacteria MODERATE H /HPF Urine Casts NONE /LPF Urine Mucus NEGATIVE /LPF Urine Culture Indicated NO White Blood Count 11.5 H 4.3-11.0 10^3/uL Red Blood Count 5.47 H 3.80-5.11 10^6/uL Hemoglobin 14.9 11.5-16.0 g/dL Hematocrit 45 35-52 % Mean Corpuscular Volume 82 80-99 fL Mean Corpuscular Hemoglobin 27 25-34 pg Mean Corpuscular Hemoglobin Concent 33 32-36 g/dL Red Cell Distribution Width 13.7 10.0-14.5 % Platelet Count 257 130-400 10^3/uL Mean Platelet Volume 10.3 9.0-12.2 fL Immature Granulocyte % (Auto) 0 % Neutrophils (%) (Auto) 72 42-75 % Lymphocytes (%) (Auto) 19 12-44 % Monocytes (%) (Auto) 7 0-12 % Eosinophils (%) (Auto) 1 0-10 % Basophils (%) (Auto) 0 0-10 % Neutrophils # (Auto) 8.3 H 1.8-7.8 10^3/uL Lymphocytes # (Auto) 2.2 1.0-4.0 10^3/uL Monocytes # (Auto) 0.9 0.0-1.0 10^3/uL Eosinophils # (Auto) 0.1 0.0-0.3 10^3/uL Basophils # (Auto) 0.0 0.0-0.1 10^3/uL Immature Granulocyte # (Auto) 0.0 0.0-0.1 10^3/uL Sodium Level 140 135-145 MMOL/L Potassium Level 3.8 3.6-5.0 MMOL/L Chloride Level 103 98-107 MMOL/L Carbon Dioxide Level 25 21-32 MMOL/L Anion Gap 12 5-14 MMOL/L Blood Urea Nitrogen 10 7-18 MG/DL Creatinine 0.65 0.60-1.30 MG/DL Estimat Glomerular Filtration Rate 123 BUN/Creatinine Ratio 15 Glucose Level 97 70-105 MG/DL Calcium Level 9.3 8.5-10.1 MG/DL Corrected Calcium 9.1 8.5-10.1 MG/DL Total Bilirubin 0.6 0.1-1.0 MG/DL Aspartate Amino Transf (AST/SGOT) 13 5-34 U/L Alanine Aminotransferase (ALT/SGPT) 13 0-55 U/L Alkaline Phosphatase 94 40-136 U/L Total Protein 7.0 6.4-8.2 GM/DL Albumin 4.2 3.2-4.5 GM/DL (GABRIELLA STRICKLAND MD) My Orders Orders - GABRIELLA STRICKLAND MD Ua Culture If Indicated (03/29/22 22:04) (GABRIELLA STRICKLAND MD) Medications Given in ED Current Medications Medications Dose Ordered Sig/Romana Route Start Time Stop Time Status Last Admin Dose Admin Ondansetron HCl 4 mg ONCE ONCE IVP 03/29/22 22:30 03/29/22 22:31 DC 03/29/22 22:38 4 MG (GABRIELLA STRICKLAND MD) Vital Signs/I&O 03/29/22 03/29/22 22:19 23:22 Temp 37.1 36.9 Pulse 118 79 Resp 18 16 B/P (MAP) 157/99 (118) 141/87 Pulse Ox 97 99 O2 Delivery Room Air Room Air 03/30/22 00:00 Intake Total 1000 ml Balance 1000 ml (GABRIELLA STRICKLAND MD) Progress Progress Note : Time: 22:18 Progress Note Patient seen and evaluated, will obtain CT, labs, normal saline 1 mL, Zofran 4 mg IV and Toradol 30 mg IV. 2255 patient reports slight improvement in her symptoms. CT pending. 2310 no acute findings per CT. Patient reports improvement in symptoms. Discharge instructions and return precautions reviewed with her. (BELL CHEN) Diagnostic Imaging Diagonstic Imaging: CT Plain Films/CT/US/NM/MRI: abdomen, pelvis Comments NAME: [facility] REC#: [id number] PT STATUS: REG ER : 1995 PHYSICIAN: BELL CHEN ADMIT DATE: 03/29/22/ER Draft Date of Exam:03/29/22 CT ABD/PELVIS WO(KIDNEY STONE) PROCEDURE: CT urinary tract, rule out kidney stone. TECHNIQUE: Multiple contiguous axial images were obtained through the abdomen and pelvis without the use of intravenous contrast. Auto Exposure Controls were utilized during the CT exam to meet ALARA standards for radiation dose reduction. INDICATION: Flank pain. COMPARISON: None. FINDINGS: The heart is unremarkable. The lung bases are clear. Nonspecific inflammatory changes are seen adjacent to the right renal pelvis. No obstructing calculi or hydronephrosis is seen. The urinary bladder is decompressed. No bladder calculi. The liver, spleen, pancreas and adrenal glands have a normal noncontrast CT appearance. The gallbladder is surgically absent. There is no pathologically enlarged mesenteric or retroperitoneal adenopathy. The bowel loops are nondilated. The appendix is visualized in the right lower quadrant and has a normal appearance. There is no free fluid or free air. No acute osseous abnormalities. Bilateral pars defects are seen at L5. There is no free air, loculated collection or adenopathy in the pelvis. IMPRESSION: Nonspecific inflammatory changes adjacent to the right renal pelvis without obstructing calculi or hydronephrosis. Findings may represent urinary tract infection with pyelonephritis also a possibility. Recommend correlation with UA and follow-up, as indicated. Dictated on workstation # [id number] Dict: 03/29/22 2256 Trans: 03/29/22 0589 [facility] [id number] Interpreted by: BRAYDEN MORRISON DO Electronically signed by: Reviewed: Reviewed by Me, Reviewed/Discussed (with Dr. Rodriguez) (BELL CHEN) Departure Impression Primary Impression: Nausea and vomiting Qualified Codes: R11.2 - Nausea with vomiting, unspecified Additional Impressions: Abdominal pain Qualified Codes: R10.33 - Periumbilical pain UTI (urinary tract infection) Qualified Codes: N30.01 - Acute cystitis with hematuria Disposition: HOME, SELF-CARE Condition: Improved Departure-Patient Inst. Decision time for Depature: 23:05 (BELL CHEN) Referrals: [facility] (PCP) Primary Care Physician ZARINA CARMEN APRN (Family) Primary Care Physician Patient Instructions: Severe Abdominal Pain, Adult (DC), Urinary Tract Infection, Adult (DC) Add. Discharge Instructions: Increase water intake, 16 ounces every 2 hours while awake. Eat 1 cup of fresh blueberries or drink 1 cup of cranberry juice daily. Alternate between Tylenol 650 mg and ibuprofen 600 mg every 4 hours for pain or fever. Take antibiotics as prescribed. Use Zofran for Nausea/vomiting Follow-up with your primary care provider if symptoms or not improving or worsen. Return to the emergency department for new, urgent healthcare problems. All discharge instructions reviewed with patient and/or family. Voiced understanding. Scripts Nitrofurantoin Monohyd/M-Cryst (Macrobid 100 mg Capsule) 100 Mg Capsule 1 TAB PO BID, #14 CAP Prov: BELL CEHN 03/29/22 ATTENDING PHYSICIAN NOTE: I was physically present as attending physician in the emergency department during the care of this patient, but I was not directly involved in the decision making or delivery of care for this patient. (GABRIELLA STRICKLAND MD) BELL CHEN Mar 29, 2022 22:36 GABRIELLA STRICKLAND MD Mar 30, 2022 05:10
[2022-03-29 22:38] LABS: BACTERIA,URINE MODERATE /HPF; RBC,URINE 0-2 /HPF
[2022-03-29 22:45] LABS: BASOPHILS % (AUTO) 0 % (0-10); EOSINOPHILS # (AUTO) 0.1 10^3/uL (0.0-0.3); EOSINOPHILS % (AUTO) 1 % (0-10); HEMATOCRIT 45 % (35-52); HEMOGLOBIN 14.9 g/dL (11.5-16.0); LYMPHOCYTES # (AUTO) 2.2 10^3/uL (1.0-4.0); LYMPHOCYTES % (AUTO) 19 % (12-44); MEAN CORPUSCULAR HEMOGLOBIN 27 pg (25-34); MEAN CORPUSCULAR HGB CONC 33 g/dL (32-36); MEAN CORPUSCULAR VOLUME 82 fL (80-99); MEAN PLATELET VOLUME 10.3 fL (9.0-12.2); MONOCYTES # (AUTO) 0.9 10^3/uL (0.0-1.0); MONOCYTES % (AUTO) 7 % (0-12); NEUTROPHILS # (AUTO) 8.3 10^3/uL (1.8-7.8); NEUTROPHILS % (AUTO) 72 % (42-75); PLATELET COUNT 257 10^3/uL (130-400); WHITE BLOOD COUNT 11.5 10^3/uL (4.3-11.0)
[2022-03-29 22:52] LABS: ALBUMIN 4.2 GM/DL (3.2-4.5); POTASSIUM 3.8 MMOL/L (3.6-5.0)
[2022-03-29 22:53] LABS: CALCIUM 9.3 MG/DL (8.5-10.1)
[2022-03-29 22:56] LABS: BILIRUBIN,TOTAL 0.6 MG/DL (0.1-1.0)
[2022-03-29 22:58] LABS: CREATININE SERUM 0.65 MG/DL (0.60-1.30)
--- NOTE | 2022-03-29 23:00 | Diagnostic Imaging Report ---
PROCEDURE: CT urinary tract, rule out kidney stone. TECHNIQUE: Multiple contiguous axial images were obtained through the abdomen and pelvis without the use of intravenous contrast. Auto Exposure Controls were utilized during the CT exam to meet ALARA standards for radiation dose reduction. INDICATION: Flank pain. COMPARISON: None. FINDINGS: The heart is unremarkable. The lung bases are clear. Nonspecific inflammatory changes are seen adjacent to the right renal pelvis. No obstructing calculi or hydronephrosis is seen. The urinary bladder is decompressed. No bladder calculi. The liver, spleen, pancreas and adrenal glands have a normal noncontrast CT appearance. The gallbladder is surgically absent. There is no pathologically enlarged mesenteric or retroperitoneal adenopathy. The bowel loops are nondilated. The appendix is visualized in the right lower quadrant and has a normal appearance. There is no free fluid or free air. No acute osseous abnormalities. Bilateral pars defects are seen at L5. There is no free air, loculated collection or adenopathy in the pelvis. IMPRESSION: Nonspecific inflammatory changes adjacent to the right renal pelvis without obstructing calculi or hydronephrosis. Findings may represent urinary tract infection with pyelonephritis also a possibility. Recommend correlation with UA and follow-up, as indicated. Dictated by: Dictated on workstation # [id number]
[2022-03-29] MEDS ORDERED: NITR-65 PO (23:10)
[2022-03-29] MEDS ORDERED: RX-ONDANSETRON 4 MG ODT (ZOFRAN) PPK #4 PO STA (23:11)
[2022-03-29] MEDS ORDERED: RX-NITROFURANTOIN 100 MG (MACROBID) CAP PPK#2 PO STA (23:11)
[2022-03-29 23:22] VITALS: BP 141/87
== END 2022-03-29 23:24 | disposition home or self-care (01) ==
LOC: EDUNIT# 22:00 → ER 22:03
DX: N39.0 Urinary tract infection, site not specified (principal); R11.2 Nausea with vomiting, unspecified; F17.210 Nicotine dependence, cigarettes, uncomplicated; Z87.442 Personal history of urinary calculi
CPT/HCPCS: 36415; 74176; 80053; 81000; 84703; 85025; 87088